=== PATIENT | female | born 1960 | race Caucasian/White ===

== ENCOUNTER 2018-02-05 07:08 | Day surgery (SDC) | payer BC ==
[2018-02-05] MEDS ORDERED: LEVOTHYROXINE112 MCG PO (07:24)
[2018-02-05] MEDS ORDERED: LISINOPRIL20 MG PO (07:24)
== END 2018-02-05 09:13 | disposition home or self-care (01) ==
LOC: CATH 07:08
DX: Z45.2 Encounter for adjustment and management of vascular access device (principal); C50.912 Malignant neoplasm of unspecified site of left female breast; I87.8 Other specified disorders of veins
CPT/HCPCS: C1788; C1894; J0690; J1644; J2250; J3010; S0020